=== PATIENT | female | born 1955 | race African-American/Black ===

== ENCOUNTER 2016-05-31 09:04 | Emergency (ER) ==
[2016-05-31 09:51] LABS: URINE CULTURE NEEDED? NO; URINE MICRO REVIEW NEEDED? NO; URINE SOURCE CLEAN CATCH
[2016-05-31 10:05] LABS: BILIRUBIN URINE NEGATIVE (NEGATIVE); BLOOD URINE SMALL (NEGATIVE); COLOR YELLOW; GLUCOSE URINE NEGATIVE (NEGATIVE); LEUKOCYTES URINE NEGATIVE (NEGATIVE); NITRITE URINE NEGATIVE (NEGATIVE); PH URINE 5.5; PROTEIN URINE NEGATIVE (NEGATIVE); SP GRAVITY URINE 1.025; TURBIDITY URINE CLEAR (CLEAR); UROBILINOGEN URINE NORMAL (NORMAL)
[2016-05-31 10:07] LABS: UR EPITHELIAL CELLS <10 /HPF (<10); URINE BACTERIA NEGATIVE /HPF; URINE RBC <10 /HPF (<10); URINE WBC <10 /HPF (<10)
[2016-05-31] MEDS ORDERED: DILAUDID IV ONE (12:10)
[2016-05-31] MEDS ORDERED: ZOFRAN IV ONE (12:10)
[2016-05-31] MEDS ORDERED: NS 1,000 ML IV ONE (12:10)
--- NOTE | 2016-05-31 12:11 | PROVIDER DOCUMENTATION ---
HPI-Abdominal Pain/GI Problem - General Chief Complaint: Back Pain Stated Complaint: ABD/BACK PAIN Time Seen by Provider: 05/31/16 12:00 Source: patient, family Allergies/Adverse Reactions: Patient Allergies Allergy/AdvReac Type Severity Reaction Status Date / Time No Known Allergies Allergy Verified 05/31/16 12:17 Home Medications: Home Medication List Medication Instructions Recorded Confirmed Last Taken Type Hydrochlorothiazide 12.5 mg PO DAILY 11/15/11 05/31/16 05/31/16 07:15 History Cholecalciferol (Vitamin D3) 400 unit PO DAILY 08/06/13 05/31/16 05/25/16 History [Vitamin D-3] Atenolol 50 mg PO DAILY 05/06/14 05/31/16 05/31/16 07:15 History Multivitamin [Multivitamins] 1 tab PO DAILY 05/06/14 05/31/16 05/25/16 History Ipratropium 0.06% Nasal Drake 2 spray URIEL TID PRN #1 bottle 11/01/14 05/31/16 Rx [Atrovent 0.06% Nasal Drake] Cyclobenzaprine [Flexeril] 10 mg PO TID #20 tablet 05/31/16 Unknown Rx Hydrocodone/APAP 5 mg/325 mg 1 each PO Q6H PRN PRN #5 tablet 05/31/16 Unknown Rx [[place]-5] Loratadine 10 mg PO DAILY 05/31/16 05/31/16 05/31/16 07:15 History Metformin [Glucophage] 500 mg PO BID CC 05/31/16 05/31/16 05/28/16 History - History of Present Illness-ABD Nature of Presenting Problems: 61 year old AAF presents with daughter. pt reports she developed low back pain yesterday eveing, getting progressively worse, became sos severe during the night she was unable to sleep. pt report the pain is dull, constant and radiates to her LUQ/LLQ from the lumbar region. pain is exacerbated by movement , flexion, extension, palpation of the lumbar region. associated nausea, without vomiting, diarrhea. pt report she has low back pain similar to this in the past, however, this is the most severe it has been. last BM this morning, normal. pt reports she was unable to eat breakfast/lunch because the abdominal pain was so severe. Abdominal Pain Onset Location: reports: LUQ, LLQ Pain Radiation: reports: back (radiates from back to abdomen) Quality of Pain: reports: aching, dull, sharp, stabbing Severity in ED: reports: mild, moderate Onset/Duration: reports: last night Timing: reports: still present, constant, getting worse Activities at Onset: reports: none. denies: light activity, moderate activity, vigorous activity, recent physical stress, recent trauma history Exposure to sick contacts?: No Modifying Factors: improves with: lying down, movement Associated Symptoms: reports: back/neck pain, loss of appetite. denies: chest pain, constipation, cough, diarrhea, dizziness, fever/chills, genitourinary problems, malaise, muscle aches, sinus congestion/drainage, nausea, rash, seizure, shortness of breath, syncope, vomiting, weakness Last BM: this morning Dark Stools Present?: reports: none noticed. denies: maroon, black, tarry, bright red blood Rectal Bleeding: reports: none. denies: bleeding without stool, bright red blood on paper, blood mixed with stool, blood streaks on stool, bloody diarrhea # of Diarrhea Episodes: 0 Rectal Pain: reports: none # of Vomiting Episodes: 0 Emesis Description: reports: none Bruising or Bleeding Gums?: No Similar Symptoms Previously?: No Recently seen or treated by another doctor?: No Review of Systems - Adult - REVIEW OF SYSTEMS - ADULT Constitutional: reports: no symptoms reported. denies: chills, fever, fatique Eyes: reports: no symptoms reported. denies: discharge, blurred vision, double vision Ears, Nose, Mouth & Throat: reports: no symptoms reported. denies: ear discharge, ear pain, nose pain, loose teeth, throat pain, throat swelling Cardiovascular: reports: no symptoms reported. denies: chest pain, palpitations , syncope Respiratory: reports: no symptoms reported. denies: chronic cough, cough, shortness of breath, wheezing Gastrointestinal: reports: see HPI, abdominal pain, nausea, poor appetite, vomiting. denies: hematemesis, constipation, diarrhea, difficulty swallowing, frequent heartburn, rectal bleeding Genitourinary: reports: no symptoms reported. denies: dysuria, hematuria, urgency Musculoskeletal: reports: see HPI, back pain. denies: bone pain, frequent leg cramps, joint pain, joint swelling, muscle aches, muscle weakness, neck pain Integumentary: reports: no symptoms reported. denies: hives, rash, skin sores/ ulcer Neurological: reports: no symptoms reported. denies: ataxia, dizziness/vertigo , slurred speech Psychiatric: reports: no symptoms reported Endocrine: reports: no symptoms reported Hematologic/Lymphatic: reports: no symptoms reported. denies: blood clots, low blood count, swollen lymph nodes Allergic/Immunologic: reports: no symptoms reported. denies: frequent infections All Other Systems: Reviewed and Negative Past History - Adult - PAST MEDICAL HISTORY-ADULT Review of Records: reports: Old Records Reviewed, Nursing Assessment Review, Medications Reviewed, Social history reviewed & non-contributory. Major Childhood Illnesses: reports: denies history Cardiovascular: reports: HTN Respiratory: reports: denies history Gastrointestinal: reports: denies history Obstetrical/Gynecological: reports: denies history Genitourinary: reports: denies history Musculoskeletal: reports: denies history Neurological: reports: denies history Endocrine/Immune: reports: denies history Diabetes Type: Type 2 Diabetes controlled by:: PO Meds Other Conditions: reports: denies history - PRIOR SURGERIES/PROCEDURES Surgical/Procedure History: reports: reviewed, not pertinent - PRIOR HOSPITALIZATIONS Prior Hospitalizations: reports: none - IMMUNIZATION STATUS Childhood Immunizations: UTD Flu Vaccine: See Nurse Assessment - FAMILY HISTORY Family History: reviewed, not pertinent - SOCIAL HISTORY Smoking: denies, non-smoker Substance Use: none/never Alcohol Use Frequency: never Physical Exam-General - PHYSICAL EXAM-ADULT Initial Vital Signs Reviewed: Yes - CONSTITUTIONAL General Appearance: appears well, alert, mild distress. negative: no apparent distress, moderate distress, severe distress, lethargic, slow to respond, obtunded, combative - EYES Eyes: pink conjunctivae. negative: conjuctival exudate, pale conjunctivae, sclera injected, scleral icterus, subconjunctival hemorrhage - HEAD, EARS, NOSE, MOUTH & THROAT HENMT: normocephalic/atraumatic, moist mucous membranes, normal ENT inspection - NECK Neck: non-tender, full range of motion, supple, normal inspection. negative: C- spine tenderness, limited range of motion, tender lateral, tender midline - RESPIRATORY Respiratory: chest non-tender, lungs clear, normal breath sounds, no pleuratic chest pain, no respiratory distress, no accessory muscle use. negative: respiratory distress, decreased breath sounds, accessory muscle use, crackles, rales, rhonchi, stridor, wheezing - CARDIOVASCULAR Cardiovascular: normal peripheral pulses, regular rate, rhythm, no edema, no gallop, no JVD, no murmur - CHEST (BREASTS) Chest/Breast: no tenderness - GASTROINTESTINAL (ABDOMEN) Abdominal Exam: normal bowel sounds, soft, no organomegaly, no pulsatile mass, tenderness (LUQ, LLQ). negative: non tender, abnormal bowel sounds, distended, guarding, rigid, rebound, hernia, mass, hepatomegaly, spleenomegaly, McBurney's point tenderness, Chase's sign, obturator sign, prominent aortic pulsations, psoas, Rovsing's sign - GENITOURINARY Female Genitalia/Pelvic Exam: deferred Rectal Exam: deferred Hemoccult Exam: deferred - LYMPHATIC Lymphatic: no adenopathy - MUSCULOSKELETAL Back Exam: normal inspection, no CVA tenderness, decreased range of motion ( decreased flexion/extention), vertebral tenderness (diffuse lumbar tenderness). negative: no vertebral tenderness, CVA tenderness, ecchymosis, kyphosis, lordosis, muscle spasm, scoliosis, swelling Extremity: normal range of motion, non-tender, normal gait, normal inspection, no pedal edema, no calf tenderness, normal capillary refill. negative: deformity, erythema, inflammation, joint effusion Peripheral Pulses: radial (R): 3+, radial (L): 3+, dorsalis-pedis (R): 3+, dorsalis-pedis (L): 3+ - SKIN Integumentary: normal color, normal turgor, warm/dry. negative: pallor, petechiae, purpura, rash, swelling, tenderness - NEUROLOGIC Neurologic: grossly normal, no motor/sensory deficits. negative: facial droop, focal weakness, motor weakness, sensory deficit - PSYCHIATRIC Psych/Mental Status: normal mood/affect, normal thought content, normal thought process, oriented x 3 Progress - PLAN OF CARE/RESULTS Progress/Plan/Lab Results: Laboratory Tests 05/31/16 05/31/16 05/31/16 09:34 12:35 12:35 WBC 7.15 RBC 5.04 Hgb 13.2 Hct 40.6 MCV 80.6 L MCH 26.2 L MCHC 32.5 L RDW Std Deviation 15.1 H Plt Count 296 MPV 10.2 Immature Gran % (Auto) 0.0 Neut % (Auto) 40.5 L Lymph % (Auto) 46.3 [place] % (Auto) 12.3 H Eos % (Auto) 0.6 Baso % (Auto) 0.3 Immature Gran # (Auto) 0.00 Neut # (Auto) 2.90 Lymph # (Auto) 3.31 [place] # (Auto) 0.88 H Eos # (Auto) 0.04 Baso # (Auto) 0.02 Sodium 138 Potassium 3.9 Chloride 99 Carbon Dioxide 29 Anion Gap 10 BUN 20 Creatinine 1.0 H Estimated GFR/1.73 m2 > 60 BUN/Creatinine Ratio 20 Glucose 95 Calculated Osmolality 278 Calcium 9.9 Total Bilirubin 0.57 AST 19 ALT 14 Alkaline Phosphatase 71 Total Protein 7.9 Albumin 4.1 Globulin 3.8 Albumin/Globulin Ratio 1.1 Amylase 117 Lipase 16 Urine Source CLEAN CATCH Urine Color YELLOW Urine Turbidity CLEAR Urine pH 5.5 Ur Specific [place] 1.025 Urine Protein NEGATIVE Ur Glucose (Stick) NEGATIVE Ur Ketones (Stick) NEGATIVE Urine Blood SMALL A Urine Nitrite NEGATIVE Urine Bilirubin NEGATIVE Urobilinogen Dipstick NORMAL Urine Leukocytes NEGATIVE Urine WBC (Auto) <10 Urine RBC (Auto) <10 U Epithel Cells (Auto) <10 Urine Bacteria (Auto) NEGATIVE Orders Category Date Time Status Saline Loc DIRECTED Care 05/31/16 12:09 Active NPO Diet 05/31/16 12:[address] ABD/PELVIS W/ IV CONT ONLY [CT] Stat Exams 05/31/16 12:10 Completed AMYLASE [CHEM] Stat Lab 05/31/16 12:35 Completed CBC WITH ELECTRONIC DIFF [HEME] Stat Lab 05/31/16 12:35 Completed COMPREHENSIVE METABOLIC PANEL [CHEM] Stat Lab 05/31/16 12:35 Completed LIPASE [CHEM] Stat Lab 05/31/16 12:35 Completed URINALYSIS W/POSS RFLX CULT [URINALYSIS] Stat Lab 05/31/16 09:34 Completed 0.9% Sodium Chloride Inj [Ns] 1,000 ml Med 05/31/16 12:10 Discontinued IV 999 mls/hr Hydromorphone [Dilaudid] Med 05/31/16 12:10 Discontinued 1 mg IV NOW ONE Ondansetron [Zofran] Med 05/31/16 12:10 Discontinued 4 mg IV NOW ONE Vital Signs - 24 hr 05/31/16 05/31/16 05/31/16 09:23 12:13 15:09 Temperature 98.2 F 98.0 F 97.9 F Pulse Rate 73 68 62 Respiratory 20 18 16 Rate Blood Pressure 127/90 133/87 116/84 O2 Sat by Pulse 100 100 99 Oximetry - CT/MRI 1 CT Study: Abdomen, Pelvis Impression: Abnormal (see EMR) Departure - Departure Time of Disposition Order: 14:43 DIAGNOSIS: Abdominal pain Qualifiers: Abdominal location: left lower quadrant Qualified Code(s): R10.32 - Left lower quadrant pain Disposition: HOME 01 Certified Medical Emergency: Emergent Condition: Stable Additional Instructions: Follow up wit your primary care doctor this week. ED Follow Up Instructions: You have been treated by a care provider in the Emergency Department. These instructions are being provided to you so you can have an understanding of how to care for yourself upon discharge. Upon discharge from the Emergency Department, you are responsible for making arrangements for follow-up care by a physician of your choice. Take all prescribed medications as directed. Return to the Emergency Department immediately for any new or worsening symptoms. You may call the Physician Referral phone number at [phone] to obtain a list of Physicians who are taking new patients. Prescriptions: Cyclobenzaprine [Flexeril] 10 mg PO TID #20 tablet Hydrocodone/APAP 5 mg/325 mg [[place]-5] 1 each PO Q6H PRN PRN #5 tablet PRN Reason: back pain Referrals: [Primary Care Provider] - Forms: Return to School/Parent Work Instructions: Abdominal Pain, Adult, [id number] Attestation - Physician/ TISH Attestation Patient care was provided by Advanced Practice Provider:: Yes Advanced Practice Provider:: Dusty Perez Advanced Practice Provider documentation review:: The Mid-level provider documentation, treatment plan and medical decision making was reviewed by the physician who agrees with all treatment and medical decision making by the MLP.
[2016-05-31 12:52] LABS: MANUAL DIFF NEEDED? NO
[2016-05-31 13:01] LABS: BASO% 0.3 % (0.0-0.8); EOS# 0.04 X1000 (0.0-0.7); EOS% 0.6 % (0.0-10.0); HEMATOCRIT 40.6 % (37.0-47.0); HEMOGLOBIN 13.2 g/dL (12.0-16.0); LYMPH# 3.31 X1000 (1.2-3.4); LYMPH% 46.3 % (20.5-51.1); MCH 26.2 PG (27-31); MCHC 32.5 g/dL (33-37); MCV 80.6 FL (81-99); MONO# 0.88 X1000 (0.11-0.59); MONO% 12.3 % (1.7-9.3); MPV 10.2 FL (7.4-10.4); NEUT% 40.5 % (42.2-75.2); PLT 296 X1000 (130-400); RBC 5.04 XMIL (4.2-5.4)
[2016-05-31 13:17] LABS: AGAP 10; ALBUMIN 4.1 g/dL (3.5-5.0); ALKALINE PHOSPHATASE 71 U/L (32-104); AMYLASE 117 U/L (20-200); BUN 20 mg/dL (8-22); CALCIUM 9.9 mg/dL (8.8-10.2); CHLORIDE 99 mmol/L (98-107); COSMO 278; GOT 19 U/L (10-30); GPT 14 U/L (10-36); LIPASE 16 U/L (13-60); POTASSIUM 3.9 mmol/L (3.5-5.1); SODIUM 138 mmol/L (136-145); TCO2 29 mmol/L (25-35); TOTAL BILIRUBIN 0.57 mg/dL (0.20-1.00); TOTAL PROTEIN 7.9 g/dL (6.3-8.3)
[2016-05-31 15:11] VITALS: BP 116/84
--- NOTE | 2016-05-31 15:40 | Diag Imaging Result Document ---
PROCEDURE NAME: CT ABD/PELVIS W/ IV CONT ONLY - 05/31/2016 CT OF THE ABDOMEN WITH INTRAVENOUS CONTRAST: FINDINGS: There are some patchy ill-defined opacities in the lung bases, some of which may be due to airtrapping. The possibility of mild pulmonary edema cannot be excluded. There are no previous studies. There is an accessory renal artery on the left. There is no evidence of abdominal aortic aneurysm. The mesenteric vessels are patent. The liver, spleen. Adrenal glands, and pancreas are within normal limits. The kidneys are without evidence of hydronephrosis or mass. There is no evidence of gallstones. There is no evidence of small bowel dilatation. No significant adenopathy is present. CT OF THE PELVIS WITH INTRAVENOUS CONTRAST: The appendix is normal in appearance. The kidneys are without evidence of hydronephrosis or mass. There is no evidence of free fluid or adnexal masses. There is a somewhat expansile, but sclerotic rimmed lucent lesion in the left iliac bone seen best on image 88. This is probably a benign lesion given its appearance; however, there are no previous studies available for comparison. There is some facet arthropathy on the right at L5- S1. Degenerative disk changes are present at L2-3, L3-4 and L4-5. IMPRESSION: Patchy nonspecific pulmonary opacities. Subcentimeter lytic lesion in the left iliac bone. Probably benign.
== END 2016-05-31 15:14 | disposition home or self-care (01) ==
LOC: ED 09:04
DX: R10.32 Left lower quadrant pain (principal); M54.5 Low back pain; R10.12 Left upper quadrant pain; R11.2 Nausea with vomiting, unspecified; R10.812 Left upper quadrant abdominal tenderness; R10.814 Left lower quadrant abdominal tenderness; I10 Essential (primary) hypertension; E11.9 Type 2 diabetes mellitus without complications; Z79.899 Other long term (current) drug therapy
CPT/HCPCS: 74177; 80053; 81001; 82150; 83690; 85025; J1170; J2405; J7030; Q9967